=== PATIENT | female | born 1945 ===

== ENCOUNTER → 2019-08-22 | Day surgery (SDC) | payer OTHER ==
[~2019-08-22] MED LIST: AVALIDE 300-121 EACH PO; CYMBALTA20 MG PO; LIPITOR20 MG PO; METFORMIN HCL1000 M2 PO; NORVASC2.5 M1 PO; SYNTHROID75 MCG PO
== END | disposition home or self-care (01) ==
LOC: ADM 08-17 10:15 → CIR.AMB 09:38
PROVIDERS: ATTEND Colon & Rectal Surgery
DX: K64.8 Other hemorrhoids (principal); K64.4 Residual hemorrhoidal skin tags